=== PATIENT | male | born 1995 | race African-American/Black ===

== ENCOUNTER 2021-02-08 02:17 | Emergency (ER) | payer MEDICAID ==
[~2021-02-08] VITALS: Ht 188 cm; Wt 75.0 kg
[2021-02-08 02:25] VITALS: BP 106/56
== END 2021-02-08 04:55 | disposition left against medical advice (07) ==
LOC: ER 02:17
DX: Z53.21 Procedure and treatment not carried out due to patient leaving prior to being seen by health care provider (principal)

== ENCOUNTER 2021-08-04 15:47 | Emergency (ER) | payer MEDICAID ==
[~2021-08-04] VITALS: Ht 188 cm; Wt 77.0 kg
[2021-08-04] MEDS ORDERED: FAMOTIDINE 20MG/2ML VIAL IV STA (16:34)
[2021-08-04 16:56] LABS: BASOPHILS % 1.2 % (0.0-2.0); EOSINOPHILS % 2.5 % (0.0-5.0); HEMATOCRIT. 43.3 % (42.0-52.0); HEMOGLOBIN. 14.3 g/dL (14.0-18.0); LYMPHOCYTES % 30.5 % (20.0-50.0); MEAN CORPUSCULAR HEMOGLOBIN 29.8 pg (28.0-32.0); MEAN CORPUSCULAR VOLUME 90.1 fL (80.0-94.0); MEAN PLATELET VOLUME 9.3 fl (7.4-10.4); MONOCYTES % 8.6 % (2.0-8.0); NEUTROPHILS % 57.2 % (40.0-76.0); PLATELET 166 x1000/uL (130-400); RED CELL DISTRIBUTION WIDTH 13.4 % (11.6-14.6)
[2021-08-04 17:02] LABS: CHLORIDE 109 mEq/L (98-107)
[2021-08-04] MEDS ORDERED: FAMO-135 MT (19:54)
[2021-08-04 20:15] VITALS: BP 108/82
== END 2021-08-04 20:20 | disposition home or self-care (01) ==
LOC: ER 15:47
DX: R10.13 Epigastric pain (principal); R07.89 Other chest pain
CPT/HCPCS: 36415; 71045; 76705; 80053; 83690; 84484; 85025; 93005; 96374; 99285; J3490

== ENCOUNTER 2021-11-20 09:12 | Emergency (ER) | payer MEDICAID ==
[~2021-11-20] VITALS: Ht 185.4 cm; Wt 89.0 kg
[~2021-11-20 09:12] MED LIST: FAMO-135 MT
[2021-11-20 09:22] VITALS: BP 116/68
[2021-11-20] MEDS ORDERED: ONDANSETRON 4MG ODT PO ONE (11:15)
[2021-11-20] MEDS ORDERED: IBUPROFEN 800MG TABLET PO ONE (11:15)
[2021-11-20 12:06] LABS: HEMATOCRIT. 44.2 % (42.0-52.0); HEMOGLOBIN. 15.1 g/dL (14.0-18.0); MEAN CORPUSCULAR HEMOGLOBIN 30.3 pg (28.0-32.0); MEAN CORPUSCULAR VOLUME 88.8 fL (80.0-94.0); MEAN PLATELET VOLUME 8.7 fl (7.4-10.4); PLATELET 161 x1000/uL (130-400); RED BLOOD CELL COUNT 4.97 mill/uL (4.7-6.1); RED CELL DISTRIBUTION WIDTH 12.9 % (11.6-14.6)
[2021-11-20 12:17] LABS: CHLORIDE 104 mEq/L (98-107)
[2021-11-20] MEDS ORDERED: BENZ-16 MT (12:50)
[2021-11-20] MEDS ORDERED: ONDA4TAB11 PO (12:50)
[2021-11-20] MEDS ORDERED: IBUP-2030 MT (12:50)
[2021-11-20 13:30] LABS: PLATELET ESTIMATE NORMAL
== END 2021-11-20 13:13 | disposition home or self-care (01) ==
LOC: ER 09:37
DX: U07.1 COVID-19 (principal)
CPT/HCPCS: 36415; 71045; 80053; 83690; 85025; 87426; 87804; 99284; C9803; Q0162